=== PATIENT | female | born 1970 | race Caucasian/White ===

== ENCOUNTER 2019-08-18 22:55 | Emergency (ER) | payer OTHER ==
--- NOTE | 2019-08-18 23:47 | EDM.PDOC ---
ED HPI GENERAL MEDICAL PROBLEM - General Chief Complaint: Skin Complaint Stated Complaint: POSSIBLE INFECTION IN INCISION/BACK Time Seen by Provider: 08/18/19 23:13 - History of Present Illness INITIAL COMMENTS - FREE TEXT/NARRATIVE: 49-year-old female presents with possible skin infection. The patient underwent an L5-S1 fusion with hardware approximately 20 days ago. She is been doing well and recovering very well however she is had about 3 hours of some drainage from the wound and increasing redness and swelling. She was seen this morning by a provider here and placed on Bactrim and they saba lines around the edges of the redness. The redness is already moved beyond the edges of the wound and that she is experiencing increasing pain. She says it like her skin is full and stretching. Her pain is 8/10. She denies any fevers. She also endorses some coccygeal pain which is new for her. No weakness or numbness in her legs. There is no new paresthesia. Her right buttock has been somewhat numb for many many months even before the surgery. She denies any chest pain or shortness of breath. No headache confusion. No difficulty with gait. No dysuria. Of note she has been taking less pain medication because she is almost run out. The doctor she saw the day did give her prescription but she has not filled that yet. lower back surgery area Pain Score (Numeric/FACES): 6 - Related Data Allergies Allergy/AdvReac Type Severity Reaction Status Date / Time metoclopramide [From Reglan] Allergy Vomiting Verified 08/18/19 23:10 morphine Allergy Hives Verified 08/18/19 23:10 risperidone [From Risperdal] Allergy Hallucinati Verified 08/18/19 23:10 ons Home Meds: Home Meds Amitriptyline [Elavil] 25 mg PO BEDTIME 08/18/19 [History] Aspirin 81 mg PO DAILY 08/18/19 [History] Cholecalciferol (Vitamin D3) [D-2000] 5,000 unit PO DAILY 08/18/19 [History] Cyanocobalamin (Vitamin B-12) [B-12] 1,000 mcg PO DAILY 08/18/19 [History] Cyclobenzaprine [Flexeril] 10 mg PO DAILY 08/18/19 [History] Hydrocodone/Acetaminophen [Hydrocodon-Acetaminoph 7.5-325] 1 each PO ASDIRECTED PRN 08/18/19 [History] Levothyroxine 112 mcg PO ACBREAKFAST 08/18/19 [History] Magnesium 500 mg PO DAILY 08/18/19 [History] Meloxicam 7.5 mg PO DAILY 08/18/19 [History] Omeprazole 20 mg PO BIDAC 08/18/19 [History] Rosuvastatin [Crestor] 20 mg PO DAILY 08/18/19 [History] Sulfamethoxazole/Trimethoprim [Bactrim Ds Tablet] 800 each PO BID 08/18/19 [ History] Topiramate 200 mg PO BID 08/18/19 [History] amLODIPine [Norvasc] 5 mg PO DAILY 08/18/19 [History] Hydrocodone Bit/Homatrop Me-Br [Hydrocod-Homatrop 5-1.5 mg Tab] 1 each PO Q4HR PRN 10 Days #8 tablet 08/19/19 [Rx] Past Medical History HEENT History: Reports: None Cardiovascular History: Reports: High Cholesterol, Hypertension, Other (See Below) Other Cardiovascular History: left atrium dysfunction Respiratory History: Reports: None Gastrointestinal History: Reports: None Genitourinary History: Reports: Other (See Below) 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 Neurological History: Reports: Migraines Psychiatric History: Reports: Anxiety, Depression Endocrine/Metabolic History: Reports: None Insulin Pump Model and Domestic Helper: N/A Hematologic History: Reports: None Immunologic History: Reports: None Oncologic (Cancer) History: Reports: None Dermatologic History: Reports: None - Infectious Disease History Infectious Disease History: Reports: Chicken Pox - Past Surgical History Head Surgeries/Procedures: Reports: None GI Surgical History: Reports: Cholecystectomy Female Surgical History: Reports: Other (See Below) Other Female Surgeries/Procedures: partial hysterectomy. vaginal repair Musculoskeletal Surgical History: Reports: Shoulder Surgery, Other (See Below) Other Musculoskeletal Surgeries/Procedures:: left hand fussion. back fussion Social & Family History - Family History Family Medical History: Noncontributory - Tobacco Use Smoking Status *Q: Current Every Day Smoker Years of Tobacco use: 2 Packs/Tins Daily: 0.5 - Caffeine Use Caffeine Use: Reports: Coffee - Recreational Drug Use Recreational Drug Use: No ED ROS GENERAL - Review of Systems Review Of Systems: Comprehensive ROS is negative, except as noted in HPI. ED EXAM, SKIN/RASH Exam: See Below Text/Narrative:: General: No acute distress. Comfortable. Heent: Examination revealed no pallor, no icterus, no lymphadenopathy. The patient has normal posterior pharynx, moist mucous membranes. Neck: Supple. No JVD. No rigidity. Heart: Normal rate. Reg rhythm. No murmurs appreciated. Lungs: Bilaterally clear to auscultation. No focal findings. Back: 11 cm x 7 cm area of erythema and induration greater on the right than the left around the surgical wound which has some mild dehiscence. There is no carolyn fluctuance but there is also some swelling which emanates right greater than left away from the wound. Abdomen: Nontender, non-distended, soft, no CVA tenderness. Neuro: Pt is moving all four extremities. EOMI. PERRL. Normal speech. Normal dorsiflexion plantarflexion of the feet. Hip flexors intact. Skin: Exposed areas appeared normally perfused, warm, normal color with no meaningful rashes or lesions. Extremities: Peripheral examination revealed no pedal edema. Peripheral pulses were 2+. ED SKIN PROCEDURES - I&D Drainage: Bloody, Moderate Amount Probed to Break Up Loculations: Yes Progress/Comments: Procedure incision and drainage. Risk and benefit discussed with patient. Location is just to the right of the incision on the midline lower back. The abscess was localized with ultrasound. It was prepped with 2 layers of Betadine allowed to dry. Sterile drapes were applied. 6 cc of 1% lidocaine with epinephrine was applied to the area overlying the abscess. Abscess was localized with a needle under ultrasound guidance. After this an 11-gauge blade was inserted along the course of the 18-gauge needle in the abscess proper. Bloody pus was expelled. It was explored with a mosquito forceps to break up loculations. Bleeding well controlled. Blood loss 5 cc. The wound was covered with sterile gauze. Patient tolerated the procedure reasonably well. Course - Vital Signs Last Recorded V/S: Last Vital Signs Temp 96.7 F L 08/19/19 03:06 Pulse 105 H 08/19/19 03:06 Resp 18 08/19/19 03:06 BP 108/73 08/19/19 03:06 Pulse Ox 97 08/19/19 03:06 - Orders/Labs/Meds Labs: Laboratory Tests 08/18/19 08/18/19 Range/Units 23:58 23:58 WBC 14.73 H (4.0-11.0) K/uL RBC 3.91 L (4.30-5.90) M/uL Hgb 13.2 (12.0-16.0) g/dL Hct 40.7 (36.0-46.0) % MCV 104.1 H (80.0-98.0) fL MCH 33.8 H (27.0-32.0) pg MCHC 32.4 (31.0-37.0) g/dL RDW Std Deviation 47.8 (28.0-62.0) fl RDW Coeff of Amaya 13 (11.0-15.0) % Plt Count 464 H (150-400) K/uL MPV 9.30 (7.40-12.00) fL Neut % (Auto) 76.7 (48.0-80.0) % Lymph % (Auto) 14.0 L (16.0-40.0) % Wayne % (Auto) 7.3 (0.0-15.0) % Eos % (Auto) 1.8 (0.0-7.0) % Baso % (Auto) 0.2 (0.0-1.5) % Neut # (Auto) 11.3 H (1.4-5.7) K/uL Lymph # (Auto) 2.1 (0.6-2.4) K/uL Wayne # (Auto) 1.1 H (0.0-0.8) K/uL Eos # (Auto) 0.3 (0.0-0.7) K/uL Baso # (Auto) 0.0 (0.0-0.1) K/uL Nucleated RBC % 0.0 /100WBC Nucleated RBCs # 0 K/uL Sodium 140 (136-145) mmol/L Potassium 3.4 L (3.5-5.1) mmol/L Chloride 103 (98-107) mmol/L Carbon Dioxide 22.7 (21.0-32.0) mmol/L BUN 16 (7.0-18.0) mg/dL Creatinine 1.3 H (0.6-1.0) mg/dL Est Cr Clr Drug Dosing 47.10 mL/min Estimated GFR (MDRD) 43.5 ml/min Glucose 146 H (74-106) mg/dL Calcium 9.2 (8.5-10.1) mg/dL Total Bilirubin 0.4 (0.2-1.0) mg/dL AST 21 (15-37) IU/L ALT 30 (14-63) IU/L Alkaline Phosphatase 113 (46-116) U/L C-Reactive Protein 17.10 H (0.00-0.90) mg/dL Total Protein 8.2 (6.4-8.2) g/dL Albumin 3.6 (3.4-5.0) g/dL Globulin 4.6 H (2.6-4.0) g/dL Albumin/Globulin Ratio 0.8 L (0.9-1.6) Meds: Medications Discontinued Medications Generic Name Dose Route Start Last Admin Trade Name Freq PRN Reason Stop Dose Admin Hydrocodone Bitart/Acetaminophen 1 tab 08/18/19 23:48 08/18/19 23:[address] 325-5 Mg PO 08/18/19 23:49 1 tab ONETIME ONE Administration Hydrocodone Bitart/Acetaminophen 1 tab 08/19/19 01:29 08/19/19 01:[address] 325-5 Mg PO 08/19/19 01:30 1 tab ONETIME ONE Administration Hydrocodone Bitart/Acetaminophen 1 tab 08/19/19 03:07 08/19/19 03:[address] 325-5 Mg PO 08/19/19 03:08 1 tab ONETIME ONE Administration Doxycycline Hyclate 100 mg/ 100 mls @ 100 mls/hr 08/19/19 00:15 08/19/19 00: 38 Sodium Chloride IV 100 mls/hr Q12H MARIO Administration Sodium Chloride 1,000 mls @ 999 mls/hr 08/19/19 00:24 08/19/19 00:34 Normal Saline IV 08/19/19 01:24 999 mls/hr .BOLUS ONE Administration Lidocaine/Epinephrine 10 ml 08/19/19 01:30 Xylocaine 1% With Epinephrine 1:100,000 INJECT 08/19/19 01:31 ONETIME ONE Lidocaine/Epinephrine 20 ml 08/19/19 01:33 08/19/19 02:18 Xylocaine 1% With Epinephrine 1:100,000 INJECT 08/19/19 01:34 20 ml ONETIME ONE Administration - Radiology Interpretation Free Text/Narrative:: Care discussed with JADE Farley in [place]. The patient talked to JADE Farley today. HE endorses drainage of the abscess (after the pt requested tu I call before treating). HE reports he will call her in the morning to have her come down for assessment. Patient was given antibiotics here she will continue her home antibiotic as well. They will likely arrange for the patient to travel to [place] leaving in about 5 or 6 hours and arriving in [place] within 12 hours. Patient is stable for discharge. Tachycardia resolved. I and D effective, antibiotics on board. Departure - Departure Time of Disposition: 03:20 Disposition: Home, Self-Care 01 Condition: Good Clinical Impression: Abscess - Discharge Information Prescriptions: Hydrocodone Bit/Homatrop Me-Br [Hydrocod-Homatrop 5-1.5 mg Tab] 1 each PO Q4HR PRN 10 Days #8 tablet PRN Reason: Pain (Severe 7-10) Instructions: Skin Abscess, [id number] Referrals: Gus Sethi SUEDE BRUSHER [Primary Care Provider] - Forms: ED Department Discharge Additional Instructions: Take your anti-inflammatory medication primarily to help control your pain. Also consider ice on the area but be careful not to freeze the tissue. You will be called by JADE Farley in the morning. Follow his advice and I recommend highly going to [place] and being seen there to make sure there are no other conditions which are causing increased pain. Use hydrocodone for severe breakthrough pain only. Make sure you take a stool softener or drink plenty of water to help make sure your bowels continue to move. Return to emergency with any new or troubling symptoms. The following information is given to patients seen in the emergency department who are being discharged to home. This information is to outline your options for follow-up care. We provide all patients seen in our emergency department with a follow-up referral. The need for follow-up, as well as the timing and circumstances, are variable depending upon the specifics of your emergency department visit. If you don't have a primary care physician on staff, we will provide you with a referral. We always advise you to contact your personal physician following an emergency department visit to inform them of the circumstance of the visit and for follow-up with them and/or the need for any referrals to a consulting specialist. The emergency department will also refer you to a specialist when appropriate. This referral assures that you have the opportunity for follow-up care with a specialist. All of these measure are taken in an effort to provide you with optimal care, which includes your follow-up. Under all circumstances we always encourage you to contact your private physician who remains a resource for coordinating your care. When calling for follow-up care, please make the office aware that this follow-up is from your recent emergency room visit. If for any reason you are refused follow-up, please contact the [facility] Emergency Department at and asked to speak to the emergency department charge nurse. Sepsis Event Note - Evaluation Sepsis Screening Result: No Definite Risk - Focused Exam Date Exam was Performed: 08/20/19 Time Exam was Performed: 02:08
[2019-08-18] MEDS ORDERED: Acetaminophen/HYDROcodone 325-5 MG Tab PO ONE (23:48)
[2019-08-19] MEDS ORDERED: Doxycycline 100 MG in Sodium Chloride 0.9% 100 ML IV SCH (00:15)
[2019-08-19] MEDS ORDERED: Sodium Chloride 0.9% 1,000 ML IV ONE (00:24)
[2019-08-19 00:29] LABS: CARBON DIOXIDE,CO2 22.7 mmol/L (21.0-32.0); POTASSIUM,K 3.4 mmol/L (3.5-5.1)
--- NOTE | 2019-08-19 01:17 | US ---
Indication: Status post L5-S1 fusion with new onset erythema and drainage. Technique: Real-time grayscale images with color Doppler were obtained. Static images saved for review. Comparison: None Findings: Scanning at the patient`s incision site shows increased echogenicity diffusely within the subcutaneous tissues with distortion of the normal architecture. At the area of concern there is a hypoechoic avascular collection measuring 2.0 x 1.4 x 1.4 centimeters. This is roughly 1 centimeter deep from the skin surface. Impression: Hypoechoic avascular collection roughly 1 centimeter deep from the incision measuring 2.0 x 1.4 x 1.4 cm. In this clinical setting, appearance is suggestive of a subcutaneous abscess. Dictated by Moses Washington MD @ Aug 19 2019 1:12AM Signed by Dr. Moses Washington @ Aug 19 2019 1:15AM
[2019-08-19] MEDS ORDERED: Acetaminophen/HYDROcodone 325-5 MG Tab PO ONE ×2 (01:29→03:07)
[2019-08-19] MEDS ORDERED: Lidocaine 1% with EPINEPHrine 1:100,000 10 ML MDV INJECT ONE (01:30)
[2019-08-19] MEDS ORDERED: Lidocaine 1% with EPINEPHrine 1:100,000 20 ML MDV INJECT ONE (01:33)
--- NOTE | 2019-08-19 03:02 | US ---
Indication: Ultrasound-guided abscess drainage Technique: Real-time grayscale images were obtained with static images saved for review. Comparison: None Findings/Impression: Ultrasound guidance was performed for the emergency room physician for drainage of a subcutaneous abscess. Dictated by Moses Washington MD @ Aug 19 2019 2:56AM Signed by Dr. Moses Washington @ Aug 19 2019 3:00AM
== END 2019-08-19 03:30 | disposition home or self-care (01) ==
LOC: MW.ED 22:55
DX: L02.212 Cutaneous abscess of back [any part, except buttock and flank] (principal); E78.00 Pure hypercholesterolemia, unspecified; I10 Essential (primary) hypertension; F41.9 Anxiety disorder, unspecified; F32.9 Major depressive disorder, single episode, unspecified; F17.210 Nicotine dependence, cigarettes, uncomplicated; Z88.5 Allergy status to narcotic agent; Z88.8 Allergy status to other drugs, medicaments and biological substances; Z79.899 Other long term (current) drug therapy
CPT/HCPCS: 10061; 36415; 75989; 76775; 80053; 85025; 86140; 96365; 99284; A9270; J3490; J7030; J7050; 10060; 99283